=== PATIENT | male | born 1975 | race Caucasian/White ===

== ENCOUNTER 2016-09-02 22:30 | Emergency (ER) | payer MEDICAID ==
[2016-09-02] MEDS ORDERED: cefTRIAXone 2 GM, Lidocaine 1% 4.2 ML IM ONE ×2 (22:53)
--- NOTE | 2016-09-02 23:22 | EDM.PDOC ---
ED HPI Skin/Rash - General Chief Complaint: Skin Complaint Stated Complaint: abscess Time Seen by Provider: 09/02/16 22:49 Source: Reports: Patient History Limitations: Reports: No limitations - History of Present Illness INITIAL COMMENTS - FREE TEXT/NARRATIVE: Patient reports an abdominal abscess that has worsened over the last day or two with increased redness, pain, and today he describes fever and chills. No other complaints today. Symptom Onset Date: 08/31/16 Timing: Reports: still present, worse Location, Skin: Reports: abdomen Quality: Reports: Burning, Pressure, Sharp Severity: mild Known Identified Source: no Associated Symptoms: Reports: fever/chills Similar Symptoms Previously: no Recent Medical Care: no - Related Data Allergies Allergy/AdvReac Type Severity Reaction Status Date / Time No Known Allergies Allergy Verified 09/02/16 23:26 Home Meds: Ambulatory Orders Medication Instructions Recorded Confirmed . [No Known Home Meds] 08/07/16 08/07/16 Past Medical History - Past Health History Medical/Surgical History: Denies Medical/Surgical History - Past Surgical History Other Musculoskeletal Surgeries/Procedures:: left elbow ulna nerve moved. Left wrist reattach all tendons. Social & Family History - Tobacco Use Smoking Status *Q: Current Every Day Smoker Years of Tobacco use: 30 Packs/Tins Daily: 0.5 - Alcohol Use Days Per Week of Alcohol Use: 0 - Recreational Drug Use Recreational Drug Use: No ED ROS GENERAL - Review of Systems Review Of Systems: ROS reveals no pertinent complaints other than HPI. ED EXAM, SKIN/RASH Exam: See Below Exam Limited By: No limitations General Appearance: alert, WD/WN, mild distress Skin: Warm, Dry, Intact, Erythema (lower mid abdominal wall is erythematous with spreading redness to the left side. Likely cellulitic due to infection of an ingrown hair), Increased warmth Comments: Using sterile technique, the abscess was lanced with an 11 blade scalpel and expressed for purulent drainage. ABD dressing applied and given. 2 gram rocephin IM given, prescription for Keflex also given for administration starting tomorrow. Course - Orders/Labs/Meds Meds: Medications Discontinued Medications Generic Name Dose Route Start Last Admin Trade Name Freq PRN Reason Stop Dose Admin Ceftriaxone Sodium 2 gm/ 0 gm 09/02/16 22:53 Lidocaine HCl 4.2 ml IM 09/02/16 22:54 ONETIME ONE Lidocaine HCl 5 ml 09/02/16 22:53 09/02/16 23:03 Xylocaine-Mpf 1% INJECT 09/02/16 22:54 5 ml ONETIME ONE Administration Departure - Departure Time of Disposition: 23:40 Disposition: Home, Self-Care 01 Condition: good Clinical Impression: Abdominal abscess, Abdominal wall cellulitis Instructions: Cellulitis, Adult, [id number], Wound Infection, [id number] Additional Instructions: Please take the Keflex as prescribed until it is gone. If you notice that the redness is spreading, becoming more painful, you start running a higher fever, chills, or generally more ill, make sure to come back in for additional treatment to prevent further infection Please read your directions that I have included for you If you have any questions or concerns, please call - Problem List & Annotations (1) Abdominal abscess SNOMED Code(s): 32314100 Code(s): K65.1 - PERITONEAL ABSCESS Status: Acute Priority: Low Current Visit: Yes (2) Abdominal wall cellulitis SNOMED Code(s): 25246507 Code(s): L03.311 - CELLULITIS OF ABDOMINAL WALL Status: Acute Priority: Low Current Visit: Yes - Problem List Review Problem List Initiated/Reviewed/Updated: Yes - Assessment/Plan Assessment:: Cellulitis of abdominal wall secondary to abscess Plan: Please take the Keflex as prescribed until it is gone. If you notice that the redness is spreading, becoming more painful, you start running a higher fever, chills, or generally more ill, make sure to come back in for additional treatment to prevent further infection Please read your directions that I have included for you If you have any questions or concerns, please call
[2016-09-02 23:36] VITALS: BP 141/76
== END 2016-09-02 23:40 | disposition home or self-care (01) ==
LOC: VM.ED 22:30
DX: L02.211 Cutaneous abscess of abdominal wall (principal); F17.210 Nicotine dependence, cigarettes, uncomplicated
CPT/HCPCS: 10060; 96372; 99282; J0696

== ENCOUNTER 2020-09-13 02:23 | Emergency (ER) | payer MEDICAID ==
[2020-09-13] MEDS: fentaNYL 100 MCG/2 ML SDV IM ONE (02:51)
--- NOTE | 2020-09-13 02:51 | EDM.PDOC ---
ED HPI GENERAL MEDICAL PROBLEM - General Chief Complaint: Upper Extremity Injury/Pain Stated Complaint: arm pain Time Seen by Provider: 09/13/20 02:43 Source of Information: Reports: Patient - History of Present Illness INITIAL COMMENTS - FREE TEXT/NARRATIVE: Nestor is a 45 y/o male who comes to the ER tonight with pain in his right forearm region after he slipped while getting firewood. He can move the right arm, but it is very painful to touch in the right forearm region. He did have wood in his arms when he fell. Right Arm Pain Score (Numeric/FACES): 10 - Related Data Allergies Allergy/AdvReac Type Severity Reaction Status Date / Time No Known Allergies Allergy Verified 09/13/20 02:31 Home Meds: Home Meds . [No Known Home Meds] 08/07/16 [History] Past Medical History - Past Health History Medical/Surgical History: Denies Medical/Surgical History - Past Surgical History HEENT Surgical History: Reports: Naso-Sinus Surgery Other Musculoskeletal Surgeries/Procedures:: left elbow ulna nerve moved. Left wrist reattach all tendons. Social & Family History - Tobacco Use Tobacco Use Status *Q: Current Every Day Tobacco User Years of Tobacco use: 20 Packs/Tins Daily: 0.5 - Recreational Drug Use Recreational Drug Use: Yes Recreational Drug Type: Reports: Marijuana/Hashish Review of Systems - Review of Systems Review Of Systems: See Below Constitutional: Reports: No Symptoms Eyes: Reports: No Symptoms Ears: Reports: No Symptoms Nose: Reports: No Symptoms Mouth/Throat: Reports: No Symptoms Respiratory: Reports: No Symptoms Cardiovascular: Reports: No Symptoms GI/Abdominal: Reports: No Symptoms Genitourinary: Reports: No Symptoms Musculoskeletal: Reports: Arm Pain (right forearm) ED EXAM, GENERAL - Physical Exam Exam: See Below Exam Limited By: No Limitations General Appearance: Alert, WD/WN, No Apparent Distress (Adult malel obviously in pain.) Ears: Hearing Grossly Normal Nose: Normal Inspection Throat/Mouth: Normal Voice Head: Atraumatic, Normocephalic Respiratory/Chest: No Respiratory Distress Cardiovascular: Regular Rate, Rhythm GI/Abdominal: Soft (Male) Exam: Deferred Rectal (Males) Exam: Deferred Back Exam: Other (Deferred) Extremities: Normal Range of Motion, Normal Capillary Refill, Other (Note mild edema and tenderness to right mid forearm region, no obvious deformity or bruising noted) Neurological: Alert, Oriented, CN II-XII Intact Psychiatric: Normal Affect Skin Exam: Warm, Dry, Intact, Normal Color Course - Vital Signs Text/Narrative:: 0242 The patient was seen by the [facility]. Xray ordered. He was given Fentanyl 100mcg IM for pain. Last Recorded V/S: Last Vital Signs Temp 35.3 C L 09/13/20 02:29 Pulse 68 09/13/20 02:29 Resp 14 09/13/20 02:29 BP 133/84 09/13/20 02:29 Pulse Ox 99 09/13/20 02:29 - Orders/Labs/Meds Orders: Active Orders 24 hr Category Date Time Status Forearm 2V Rt [CR] Stat Exams 09/13/20 02:35 Taken - Radiology Interpretation Free Text/Narrative:: XR Right Forearm=no acute fx noted (See final report) Departure - Departure Time of Disposition: 03:03 Disposition: Home, Self-Care 01 Condition: Good Clinical Impression: Contusion of forearm, right Qualifiers: Encounter type: initial encounter Qualified Code(s): S50.11XA - Contusion of right forearm, initial encounter Fall Qualifiers: Encounter type: initial encounter Qualified Code(s): W19.XXXA - Unspecified fall, initial encounter - Discharge Information Instructions: Contusion Forms: ED Department Discharge Sepsis Event Note (ED) - Evaluation Sepsis Screening Result: No Definite Risk - Focused Exam Vital Signs: Vital Signs Temp Pulse Resp BP Pulse Ox 09/13/20 02:29 35.3 C L 68 14 133/84 99 - My Orders Last 24 Hours: My Active Orders 09/13/20 02:35 Forearm 2V Rt [CR] Stat - Assessment/Plan Last 24 Hours: My Active Orders 09/13/20 02:35 Forearm 2V Rt [CR] Stat Assessment:: 1)Right Forearm Contusion 2)Fall Plan: -Ibuprofen 200mg 3 tablets oral every 6 hours as needed for pain -Acetaminophen 1000mg oral every 6 hours as needed for pain -Hydrocodone/APAP 5/325mg 1-2 tablets every 4-6 hours as needed for severe pain #5 (Sent home from ER) -Keep JIA wrap on forearm as needed -Apply ice to the affected region -Return to the ER or follow up with your PCP if you have any further concerns
[2020-09-13] MEDS: Take Home: Acetaminophen/HYDROcodone 325-5 MG, 5 Tab Pack PO ONE (03:08)
[2020-09-13 03:11] VITALS: BP 120/75; PULSE 65
--- NOTE | 2020-09-13 08:00 | CR ---
[id number] RAD/RAD Forearm Right 2V EXAM: 2 VIEWS RIGHT FOREARM. INDICATION: FALL COMPARISON: None. DISCUSSION: No fracture, dislocation or other acute osseous abnormality. IMPRESSION: 1. No acute osseous abnormalities. Say Alvarez DO 09/13/20 0759 Thank you for allowing us to participate in the care of your patient.
== END 2020-09-13 03:13 | disposition home or self-care (01) ==
LOC: VM.ED 02:23
DX: S50.11XA Contusion of right forearm, initial encounter (principal); Z72.0 Tobacco use; W19.XXXA Unspecified fall, initial encounter
CPT/HCPCS: 73090-RT; 96372; 99283; A9270-GY; J3010